=== PATIENT | male | born 1995 | race Caucasian/White ===

== ENCOUNTER 2017-12-28 20:13 | Emergency (ER) | payer OTHER ==
[~2017-12-28] VITALS: Ht 175.3 cm; Wt 80.7 kg
[2017-12-29] MEDS ORDERED: MUCINEX DM ER1 EAC1 PO (00:24)
[2017-12-29] MEDS ORDERED: OSEL75CA PO (00:24)
[2017-12-29] MEDS ORDERED: KETO10TA2 PO (00:24)
[2017-12-29] MEDS ORDERED: TESSALON PERLE100 MG PO (00:24)
== END 2017-12-29 00:21 | disposition home or self-care (01) ==
LOC: ER 20:13
DX: J11.1 Influenza due to unidentified influenza virus with other respiratory manifestations (principal)

== ENCOUNTER 2019-01-29 23:48 | Emergency (ER) | payer OTHER ==
[~2019-01-29] VITALS: Ht 175.3 cm; Wt 79.4 kg
[~2019-01-29 23:48] MED LIST: KETO10TA2 PO; MUCINEX DM ER1 EAC1 PO; OSEL75CA PO; TESSALON PERLE100 MG PO
[2019-01-30] MEDS ORDERED: ORASEP SPRAY30 ML MM (04:46)
[2019-01-30] MEDS ORDERED: ZOVIRAX30 GM TOP (04:46)
[2019-01-30] MEDS ORDERED: VALTREX1000 MG PO (04:46)
[2019-01-30] MEDS ORDERED: DUI500 PO (04:46)
== END 2019-01-30 04:59 | disposition home or self-care (01) ==
LOC: ER 23:48
DX: J31.2 Chronic pharyngitis (principal); B00.1 Herpesviral vesicular dermatitis; R50.9 Fever, unspecified

== ENCOUNTER → 2021-04-15 | Emergency (ER) | payer OTHER ==
[~2021-04-15] VITALS: Ht 175.3 cm; Wt 99.8 kg
[~2021-04-15] MED LIST changes: +ANUSOL-HC25 MG RECTAL; +ANUSOL-HC30 G2 TOP; +DUI500 PO; +ORASEP SPRAY30 ML MM; +PEPCID40 MG PO; +VALTREX1000 MG PO; +ZOVIRAX30 GM TOP
== END | disposition home or self-care (01) ==
LOC: ER 00:19
DX: K29.70 Gastritis, unspecified, without bleeding (principal)